=== PATIENT | male | born 1955 | race Caucasian/White ===

== ENCOUNTER → 2018-05-10 | Outpatient (CLI) | payer BC ==
[~2018-05-10] VITALS: Ht 185.4 cm; Wt 115.1 kg
[~2018-05-10] MED LIST: ACCUPRIL10 M1 PO; ANDROGEL1.62% TOP; XALATAN EYE DROPS OU
[2018-05-10 12:30] VITALS: BP 149/98; PULSE 63
[2018-05-10 14:10] VITALS: BP 169/100; PULSE 54
[2018-05-10 14:20] VITALS: BP 169/106; PULSE 57
[2018-05-10 14:40] VITALS: BP 157/97; PULSE 66
== END ==
LOC: COL.RAD 11:45
DX: M48.061 Spinal stenosis, lumbar region without neurogenic claudication (principal)
CPT/HCPCS: J3301

== ENCOUNTER 2018-07-01 07:43 | Outpatient (RCR) | payer BC ==
[~2018-07-01] VITALS: Ht 185.4 cm; Wt 106.8 kg
[~2018-07-01 07:43] MED LIST changes: +CIALIS5 MG PO
[2018-07-12 10:56] VITALS: BP 155/81; PULSE 58; TEMP 98.6
== END 2018-09-29 | disposition home or self-care (01) ==
LOC: COL.ER
DX: Z20.3 Contact with and (suspected) exposure to rabies (principal); Z23 Encounter for immunization

== ENCOUNTER → 2024-08-23 | Outpatient (CLI) | payer MEDICARE, OTHER | LOC: COL.VAS 08:59 | DX: R01.1 Cardiac murmur, unspecified (principal) ==